=== PATIENT | female | born 1965 | race Hispanic/Latino ===

== ENCOUNTER 2018-10-22 14:54 | Emergency (ER) | payer MEDICAID ==
[2018-10-22 14:58] VITALS: BMI 26.7
[2018-10-22 14:59] VITALS: RESP 18
--- NOTE | 2018-10-22 17:20 | ED PDOC ---
HPI: Dental Pain/Injury Time Seen by Provider: 10/22/18 16:34 Chief Complaint (Nursing): Dental Pain Chief Complaint (Provider): facial swelling History Per: Patient History/Exam Limitations: no limitations Onset/Duration Of Symptoms: Sudden Onset Current Symptoms Are (Timing): Still Present Additional Complaint(s): 52 year old female presents to the emergency department for an evaluation of left-sided facial swelling and numbness sensation prior to arrival. Patient states she was bending forward to tie shoes when she suddenly felt severe onset of symptoms along the edge of her left jaw, under mandible. She attempted to go to the clinic for evaluation, however, proceeded to the ED as there were no doctors present in the clinic office. Patient denies dizziness, shortness of breath, fever, chills, chest pain, weakness, visual changes, headache, dental pain, or taking medication for relief. Past Medical History Reviewed: Historical Data, Nursing Documentation, Vital Signs Vital Signs: Last Vital Signs Temp 97.6 F 10/22/18 14:58 Pulse 90 10/22/18 14:58 Resp 18 10/22/18 14:58 BP 114/81 10/22/18 14:58 Pulse Ox 99 10/22/18 14:58 Primary Care Provider: FAMILY PROVIDER,NO - Family History Family History: States: Unknown Family Hx - Home Medications Home Medications: Ambulatory Orders Medication Instructions Recorded Ibuprofen [Motrin] 600 mg PO Q6H PRN #30 tab 10/22/18 - Allergies Allergies/Adverse Reactions: Allergies Allergy/AdvReac Type Severity Reaction Status Date / Time Sulfa (Sulfonamide Allergy RASH Verified 10/22/18 16:06 Antibiotics) Review of Systems ROS Statement: Except As Marked, All Systems Reviewed And Found Negative Constitutional: Negative for: Fever, Chills Eyes: Negative for: Vision Change ENT: Positive for: Other (left-sided facial/jaw swelling). Negative for: Mouth Pain (or dental pain) Cardiovascular: Negative for: Chest Pain Respiratory: Negative for: Shortness of Breath Neurological: Positive for: Numbness (left-sided face). Negative for: Weakness, Headache, Dizziness Physical Exam - Reviewed Nursing Documentation Reviewed: Yes Vital Signs Reviewed: Yes - Physical Exam Appears: Positive for: Non-toxic, No Acute Distress Head Exam: Positive for: ATRAUMATIC, NORMAL INSPECTION, NORMOCEPHALIC Skin: Positive for: Normal Color. Negative for: Rash Eye Exam: Positive for: Normal appearance, EOMI, PERRL ENT: Positive for: Normal ENT Inspection Neck: Positive for: Normal, Painless ROM, Supple Cardiovascular/Chest: Positive for: Regular Rate, Rhythm. Negative for: Murmur Respiratory: Positive for: Normal Breath Sounds. Negative for: Respiratory Distress Neurological/Psych: Positive for: Awake, Alert, Normal Tone, Oriented, Motor/Sensory Deficits (CN V with light, decreased sensation; left-sided ti ngling sensation along lateral edge of face), manager store II-XII (CN II-VII intact), Other (left facial edema above parotid gland without tenderness or trismus) - Laboratory Results Result Diagrams: 10/22/18 18:35 10/22/18 18:35 - ECG O2 Sat by Pulse Oximetry: 99 (RA) Pulse Ox Interpretation: Normal Medical Decision Making Medical Decision Making: Time: 1634 Initial Plan: medically stable for discharge home. Advised patient to chew on sour candy, massage and apply warm compresses to affected area to promote salivation and circulation. Counseling was provided and all questions were answered regarding diagnosis. There is agreement to discharge plan. Return precautions discussed with verbal understanding. Time: 1742 --Upon providing information for registration, patient was eating a piece of candy that she brought with her then reported candida increase in swelling to left- sided face. Additional labs and CT maxillofacial with contrast ordered for further evaluation. Time: 1906 --Labs reviewed: (-) significant clinical abnormality with WBC at 7.5. Time: 1958 --CT maxillofacial FINDINGS: BONES: No acute fracture or aggressive appearing osseous lesion. The mandible is intact. SOFT TISSUES: There is mild subcutaneous edema at the deep soft tissues of the left side of the neck. SINUSES: The sinuses are clear. ORBITS: The orbits are normal. No retrobulbar hematoma or mass. IMPRESSION: No acute osseous abnormality. No suspicious mass. Mild subcutaneous edema at the deep soft tissues at the left side of the neck. Clinical correlation advised. Time: 2029 --CT findings discussed with Dr. Delacruz. No indication for further work up at this time with suggestion to follow up with PCP within this week (patient a rrives from out of town). Plan discussed with patient who verbally agrees. Copy of CT results provided for patient. Upon provider reevaluation, patient is medically stable, reports improvement in symptoms, and requires no further treatment in the ED at this time. Patient will be discharged home. Counseling was provided and all questions were answered regarding diagnosis. There is agreement to discharge plan. Return to ED or follow up with PCP if symptoms persist or worsen. Clinical Impression: swelling to left parotid gland Scribe Attestation: Documented by Jeanette Shaffer, acting as a scribe for Rosa Maria Castelan APN. Provider Scribe Attestation: All medical record entries made by the Scribe were at my direction and personally dictated by me. I have reviewed the chart and agree that the record accurately reflects my personal performance of the history, physical exam, medical decision making, and the department course for this patient. I have also personally directed, reviewed, and agree with the discharge instructions and disposition. Disposition - Clinical Impression Clinical Impression: Swelling of left parotid gland - Patient ED Disposition Is Patient to be Admitted: No Counseled Patient/Family Regarding: Diagnosis, Rx Given - Disposition Disposition: Routine/Home Disposition Time: 20:15 Condition: GOOD Prescriptions: Ibuprofen [Motrin] 600 mg PO Q6H PRN #30 tab PRN Reason: Pain, Moderate (4-7) Instructions: Parotitis Forms: [employer] (Libyan) - POA Present On Arrival: None
[2018-10-22] MEDS ORDERED: Iohexol 300 100 ML IJ ONE (18:05)
[2018-10-22] MEDS ORDERED: Sodium Chloride 0.9% 50 ML IV ONE (18:06)
[2018-10-22 18:38] LABS: BASO # 0.1 K/uL (0.0-0.2); BASO % 0.8 % (0.0-2.0); EOS # 0.1 K/uL (0.0-0.7); EOS % 1.3 % (0.0-4.0); HEMOGLOBIN 11.6 g/dL (12.0-16.0); LYMPH # 1.8 K/uL (1.0-4.3); LYMPH % 23.9 % (20.0-40.0); MEAN CELL VOLUME 81.2 fl (81.0-99.0); MEAN CORPUSCULAR HEMOGLOBIN 25.7 pg (27.0-31.0); MEAN CORPUSCULAR HGB CONC 31.7 g/dL (33.0-37.0); MEAN PLATELET VOLUME 9.6 fl (7.2-11.7); MONO # 0.4 K/uL (0.0-0.8); MONO % 5.5 % (0.0-10.0); NEUT # 5.1 K/uL (1.8-7.0); NEUT % 68.5 % (50.0-75.0); RBC 4.52 Mil/uL (3.80-5.20); RED CELL DISTRIBUTION WIDTH 16.7 % (11.5-14.5); WHITE BLOOD COUNT 7.5 K/uL (4.8-10.8)
[2018-10-22 18:52] LABS: BLOOD UREA NITROGEN 12 mg/dl (7-17); CALCIUM 9.2 mg/dL (8.4-10.2); GFR NON-AFRICAN AMERICAN 58
[2018-10-22 20:40] VITALS: BP 130/81; PULSE 75; TEMP 98; O2SAT 100
--- NOTE | 2018-10-23 12:18 | CT ---
Date of service: 10/22/2018 PROCEDURE: CT MAXILLOFACIAL BONES WITH CONTRAST HISTORY: Facial swelling COMPARISON: None. TECHNIQUE: Contiguous axial CT images of the maxillofacial bones were obtained following administration of IV contrast. Coronal and sagittal reformats were generated. Intravenous contrast Dose: 95 cc Omnipaque 300 contrast material. Radiation dose: Total exam DLP = 745.23 mGy-cm. This CT exam was performed using one or more of the following dose reduction techniques: Automated exposure control, adjustment of the mA and/or kV according to patient size, and/or use of iterative reconstruction technique. FINDINGS: NASAL BONES: Nasal bones intact. ORBITS: Orbits and contents unremarkable. Globes intact and lenses appropriately located. There are no retrobulbar hemorrhages or collections. Optic nerves and extraocular musculature unremarkable PARANASAL SINUSES/ MASTOIDS: Visualized paranasal sinuses are well developed and currently well-aerated. No fluid levels seen to suggest acute sinusitis. Minor mucosal thickening left and to a much lesser degree right maxillary antra. MAXILLA: Unremarkable. MANDIBLE/ TEMPOROMANDIBULAR JOINTS: Unremarkable. SKULL BASE: Unremarkable. TEMPORAL BONES: Middle ears and mastoid grossly unremarkable. OTHER FINDINGS: Mild infiltration and fluid within the left-sided subcutaneous tissues (including slight thickening of the platysma) extending superiorly from just below the angle of the mandible and overlying the lateral aspect of the left submandibular gland and extending superiorly over the left posterior ramus of the mandible and left parotid. There is mild asymmetry of the level left parotid gland which is slightly larger than the right-side. Rule out secondary inflammatory changes of the left parotid gland. IMPRESSION: There appears to be some mild infiltration and fluid within the left-sided subcutaneous tissues (including slight thickening of the platysma) extending superiorly from just below the angle of the mandible and overlying the lateral aspect of the left submandibular gland and extending superiorly over the left posterior ramus of the mandible and left parotid. There is mild asymmetry of the level left parotid gland which is slightly larger than the right-side. Rule out secondary inflammatory changes of the left parotid gland. Note this report was placed in PA review folder for follow up. Minimal mucosal thickening left and to a lesser degree right maxillary antra.
== END 2018-10-22 20:37 | disposition home or self-care (01) ==
LOC: H.ER 14:54
DX: K11.8 Other diseases of salivary glands (principal); Z88.2 Allergy status to sulfonamides
CPT/HCPCS: 70488; 80048; 85025; 99283; Q9967